=== PATIENT | female | born 1955 | race Caucasian/White ===

== ENCOUNTER 2018-02-14 10:51 | Inpatient (IN) | payer OTHER ==
[~2018-02-14] VITALS: Ht 162.6 cm; Wt 77.2 kg
--- NOTE | 2018-02-14 11:31 | ED GENERAL ADULT ---
History of Present Illness General Chief Complaint: Neuro Symptoms/ Deficit Stated Complaint: WEAKNESS SUDDEN ON SET OFBLINDNESS YESTERDAY Source: patient, family, old records Exam Limitations: no limitations Vital Signs & Intake/Output Vital Signs & Intake/Output Vital Signs Date Time Temp Pulse Resp B/P B/P Pulse O2 O2 Flow FiO2 Mean Ox Delivery Rate 02/14 1316 98.3 74 18 148/65 98 Room Air 02/14 1058 97.0 98 18 96/64 97 Room Air Room Air Allergies Coded Allergies: NO KNOWN ALLERGIES (10/16/12) Triage Note: TRIAGE: 62 Y/O FEMALE PRESENTS WITH MULTIPLE COMPLAINTS - CONTINUOUS FALLS, DIFFICULT AMBULATION, "SOMETHING ISN'T RIGHT". IMPAIRED VISION AT PRESENT PER PATIENT. "I DIDN'T WANT TO BOTHER MY DOCTOR YESTERDAY BECAUSE HE UST LOST HIS MOTHER." HISTORY OF FIBROMYALGIA AND "YOU NAME IT, I GOT IT." Triage Nurses Notes Reviewed? yes HPI: Patient states that she is over his head blurriness in her right eye however over the past few weeks the vision in her left eye has been getting worse as well and she is having double vision in that eye. Patient also states that on Thursday night she began having nausea vomiting and diarrhea however on Thursday she took a lemon ice and that alleviated those symptoms and she no longer has nausea vomiting or diarrhea. Patient states that yesterday morning she woke up and both her legs felt numb. Patient states that her left leg usually feels a little bit tingly however it is worsened and now her right leg is numb as well. Patient states that she keeps falling since yesterday because she can't feel her legs. Her son states that her shoes keep fallen off because she cannot feel them on her feet and she is very unsteady on her feet. Son states that he had to carry her to the car to get her here to the emergency department. Patient told triage that she is been blind since yesterday however she went to state that the vision in her eyes just gotten worse since yesterday. Past History Travel History Traveled to [place] past 21 day No Medical History Any Pertinent Medical History? see below for history Musculoskeletal: fibromyalgia History of MRSA: No History of VRE: No History of CDIFF: No Surgical History Surgical History: non-contributory Psychosocial History Who do you live with Spouse Services at Home None What is your primary language German Tobacco Use: Current Daily Use Daily Tobacco Use Amount/Type: => 5 Cigarettes daily ETOH Use: denies use Illicit Drug Use: marijuana Family History Hx Contributory? No Review of Systems Review of Systems Constitutional: Reports: no symptoms. EENTM: Reports: see HPI, blurred vision, double vision. Respiratory: Reports: no symptoms. Cardiovascular: Reports: no symptoms. GI: Reports: no symptoms. Genitourinary: Reports: no symptoms. Musculoskeletal: Reports: no symptoms. Skin: Reports: no symptoms. Neurological/Psychological: Reports: see HPI. Hematologic/Endocrine: Reports: no symptoms. Immunologic/Allergic: Reports: no symptoms. All Other Systems: Reviewed and Negative Physical Exam Physical Exam General Appearance: well developed/nourished, alert, awake, anxious, moderate distress Head: atraumatic, normal appearance Eyes: Bilateral: PERRL, EOMI, other (BLURRED VISION). Ears, Nose, Throat: normal pharynx, normal ENT inspection, hearing grossly normal Neck: normal inspection, supple, full range of motion Respiratory: normal breath sounds, chest non-tender, no respiratory distress, lungs clear Cardiovascular: regular rate/rhythm, normal peripheral pulses Gastrointestinal: normal bowel sounds, soft, non-tender, no organomegaly Back: normal inspection Extremities: normal inspection, normal capillary refill, normal range of motion, no edema, CAP REFILL <2 SEC Neurologic/Psych: awake, alert Reflexes: 2+: ankle (R), ankle (L). 3+: knee (R), knee (L). Skin: intact, normal color Comments: NEURO: A and O 3. Visual braden are intact however she states that she has blurry vision. Patient states that she is also having double vision. Extraocular muscles are intact, her neck is supple. Her reflexes are intact. There is no pronator drift. Patient is unable to elevate either leg off the stretcher however when checking Babinski's she pulled both feet back and both of them came off the table. Babinski's are downgoing bilaterally. Her capillary refill is less than 2 seconds patient states that she cannot feel my touch either lower extremity however she withdraws to pain. Core Measures ACS in differential dx? Yes CVA/TIA Diagnosis: Yes NIH Stroke Scale (24 Hours) NIH Stroke Scale (24 Hours) Response Value Level of Consciousness alert 0 LOC Questions answers both correctly 0 LOC Commands obeys both correctly 0 Best Gaze normal 0 Visual Braden no visual loss 0 Facial Paresis normal 0 Motor Arm - Left no drift 0 Motor Arm - Right no drift 0 Motor Leg - Left can't resist gravity 2 Motor Leg - Right can't resist gravity 2 Limb Ataxia present in two limbs 2 Sensory partial loss 1 Best Language no aphasia 0 Dysarthria normal articulation 0 Total 7 Date Last Known Well: 02/12/18 Time Last Known Well: 2199 Symptom start date: 02/12/18 Symptom start time: 2199 Reason tPA not ordered Medical Contraindication Swallow Evaluation Pass Swallow eval date 02/14/18 Swallow eval time 1300 Sepsis Present: No Sepsis Focused Exam Completed? No Progress Differential Diagnoses I considered the following diagnoses in my evaluation of the patient: [CVA, ELECTROLYTE ABNORMALITY, AMI, UTI, NEUROPATHY] Plan of Care: Orders Procedure Date/time Status Heart Healthy Diet 02/14 D Active Patient Data 02/14 1307 Active ED Holding Orders 02/14 1303 Active Admit to inpatient 02/14 1303 Active Vital Signs 02/14 1303 Active Code Status 02/14 1303 Active POTASSIUM 02/14 1245 Complete URINALYSIS 02/14 1131 Active TROPONIN LEVEL 02/14 1131 Complete COMPREHENSIVE METABOLIC PANEL 02/14 1131 Complete CBC WITHOUT DIFFERENTIAL 02/14 1131 Complete EKG 02/14 1131 Active Current Medications Sig/Juana Start time Last Medication Dose Stop Time Status Admin Potassium Chloride 40 MEQ ONCE ONE 02/14 1330 UNVr (K-Dur) 02/14 1331 Aspirin 325 MG ONCE ONE 02/14 1315 UNVr 02/14 (Aspirin) 02/14 1316 1309 Laboratory Tests 02/14/18 1255: 02/14/18 1210: Anion Gap 13, Estimated GFR > 60, BUN/Creatinine Ratio 31.7 H, Glucose 111 H, Calcium 9.4, Total Bilirubin 0.9, AST 15, ALT 51, Alkaline Phosphatase 68, Troponin I 0.02, Total Protein 6.9, Albumin 4.1, Globulin 2.8, Albumin/Globulin Ratio 1.5 02/14/18 1138: CBC w Diff NO MAN DIFF REQ, RBC 5.11, MCV 97.5, MCH 32.4 H, MCHC 33.3, RDW 14.8 H, MPV 8.7, Gran % 69.0, Lymphocytes % 21.9, Monocytes % 8.3, Eosinophils % 0.4 , Basophils % 0.4, Absolute Granulocytes 7.1 H, Absolute Lymphocytes 2.2, Absolute Monocytes 0.9 H, Absolute Eosinophils 0, Absolute Basophils 0 Diagnostic Imaging: Viewed by Me: Radiology Read, CT Scan. Discussed w/RAD: Radiology Read, CT Scan. Radiology Impression: PATIENT: ALLEGRA CAVANAUGH PRESENT AGE: 62 PATIENT ACCOUNT NO: [id number] : 57 LOCATION: [facility] ORDERING PHYSICIAN: Jose Ramon Lucas MD SERVICE DATE: 02/14/18 EXAM TYPE: CAT - CT HEAD WO IV CONTRAST EXAMINATION: CT HEAD WITHOUT CONTRAST CLINICAL INFORMATION: Bilateral lower extremity weakness and double vision. COMPARISON: None. TECHNIQUE: Contiguous axial imaging was performed from the skull base to vertex without intravenous administration of contrast. DLP: 607 mGy-cm. FINDINGS: There is confluent area of hypoattenuation within the white matter of the right paracentral lobule extending into the centrum semiovale ( series 2 image 45/64). There is no evidence of large territory acute infarction, hemorrhage, or extra-axial collection. The basal cisterns are intact. There is no midline shift or mass effect. The ventricles are normal in size and configuration without evidence of hydrocephalus. The extracranial structures are within normal limits. IMPRESSION: 1. Confluent area of hypoattenuation in the white matter of the right paracentral lobule extending into the centrum semiovale. This finding is indeterminant and may represent age-indeterminate subcortical infarct however vasogenic edema related to an underlying lesion could have a similar appearance. In the absence of prior studies to evaluate for stability of this finding a brain MRI with contrast is recommended for dedicated evaluation. 2. No intracranial hemorrhage, extra-axial collection, or evidence of large territory infarction. RECOMMENDATION: Brain MRI with contrast as above. DICTATED BY: Aranza Busby MD DATE/TIME DICTATED:02/14/181224 APNS:JAIDEN DATE/TIME TRANSCRIBED:02/14/181224 CONFIDENTIAL, DO NOT COPY WITHOUT APPROPRIATE AUTHORIZATION. <Electronically signed in Other Vendor System> SIGNED BY: Aranza Busby MD 02/14/18 1233 Initial ED EKG: LBBB, nonspecific ST T wave chg Prior EKG: unchanged Comments: Discussed with Dr. Ureña. He will see the patient consultation. Departure Departure Disposition: STILL A PATIENT Condition: Guarded Clinical Impression Primary Impression: CVA (cerebral vascular accident) Secondary Impressions: Hypokalemia Referrals: Rica REYNOLDS,Sawyer Guadalupe (PCP/Family) Departure Forms: Customer Survey General Discharge Information Admission Note Spoke With: Yusra REYNOLDS,[place] Documentation of Exam: Documentation of any treatments & extenuating circumstances including Concerns Regarding Discharge (functional status, medication knowledge or non-compliance, living conditions, etc.) that warrant an admission rather than observation: [ Telemetry admission, neurology checks, neurological consultation, aspirin, potassium replacement, MRI, physical therapy, case management] Critical Care Note Critical Care Note Critical Care Time: non-applicable
[2018-02-14 11:48] LABS: ABSOLUTE BASOPHIL COUNT 0 /CUMM (0.0-0.2); ABSOLUTE EOSINOPHIL COUNT 0 /CUMM (0.0-0.7); ABSOLUTE GRANULOCYTE CT 7.1 /CUMM (1.4-6.5); ABSOLUTE LYMPH COUNT 2.2 /CUMM (1.2-3.4); ABSOLUTE MONOCYTE COUNT 0.9 /CUMM (0.10-0.60); BASOPHIL % 0.4 % (0.0-2.0); EOSINOPHIL % 0.4 % (0-5); HEMATOCRIT 49.9 % (37-47); MEAN CORPUSCULAR HGB 32.4 PG (27.0-31.0); MEAN CORPUSCULAR HGB CONC 33.3 G/DL (33.0-37.0); MEAN CORPUSCULAR VOLUME 97.5 FL (81.0-99.0); MEAN PLATELET VOLUME 8.7 FL (7.4-10.4); PLATELET COUNT 231 /CUMM (130-400); RBC DISTRIBUTION WIDTH 14.8 % (11.5-14.5); RED BLOOD CELL CT 5.11 /CUMM (4.20-5.40); WHITE BLOOD CELL COUNT 10.3 /CUMM (4.8-10.8)
--- NOTE | 2018-02-14 12:33 | CT SCAN REPORT ---
EXAMINATION: CT HEAD WITHOUT CONTRAST CLINICAL INFORMATION: Bilateral lower extremity weakness and double vision. COMPARISON: None. TECHNIQUE: Contiguous axial imaging was performed from the skull base to vertex without intravenous administration of contrast. DLP: 607 mGy-cm. FINDINGS: There is confluent area of hypoattenuation within the white matter of the right paracentral lobule extending into the centrum semiovale (series 2 image 45/64). There is no evidence of large territory acute infarction, hemorrhage, or extra-axial collection. The basal cisterns are intact. There is no midline shift or mass effect. The ventricles are normal in size and configuration without evidence of hydrocephalus. The extracranial structures are within normal limits. IMPRESSION: 1. Confluent area of hypoattenuation in the white matter of the right paracentral lobule extending into the centrum semiovale. This finding is indeterminant and may represent age-indeterminate subcortical infarct however vasogenic edema related to an underlying lesion could have a similar appearance. In the absence of prior studies to evaluate for stability of this finding a brain MRI with contrast is recommended for dedicated evaluation. 2. No intracranial hemorrhage, extra-axial collection, or evidence of large territory infarction. RECOMMENDATION: Brain MRI with contrast as above.
--- NOTE | 2018-02-14 12:53 | RADIOLOGY REPORT ---
EXAMINATION: XR PORTABLE CHEST CLINICAL INFORMATION: Cough. COMPARISON: Chest radiograph 04/01/2013. TECHNIQUE: Portable frontal view of the chest was obtained. FINDINGS: No dense consolidation in the chest. No edema, pleural effusion, or pneumothorax. Cardiomediastinal silhouette is normal. Mild atheromatous calcifications in the aorta. IMPRESSION: No dense consolidation in the chest.
--- NOTE | 2018-02-14 14:26 | History & Physical ---
See Addendum General Information and HPI MD Statement: I have seen and personally examined ALLEGRA CAVANAUGH and documented this H&P. The patient is a 62 year old F who presented with a patient stated chief complaint of [loss of vision in right eye, weakness in left leg]. Source of Information: patient Exam Limitations: no limitations History of Present Illness: Patient is 62 years old female with PMH of bipolar disorder, depression, fibromyalgia, heart burn, silent heart attack twice (discorvered through EKG), came with chief complain of worsening vision and weakness in left leg. Patient states that since thursday she was not feeling well due to a stomach bug and was having nausea and voimting, yesterday she decided to visit her PCP for that and she noticed difficulty in getting dressed. Her left leg was giving away and she was unable to stand on her feet. Patient also reports that her vision started to blur yesterday. She can only see sh[place]owns through the right eye, however her left sided vision is blur and distored. She has a history of one floater in right eye but the current blurriness is completely new according to her. Patient also reports of headache in right side of the head and particulalrly states that her temporal region is tender since yesterday. (no reddness or swelling appreciated). It is 8/10 in intensity and pressure like in nature, sharp on touch only. Patient denies chest pain, difficulty breathing, abdominal disocmfort. She has not eaten anything and feels hungry. Patient lives at home and does not use walker or cane. Allergies/Medications Allergies: Coded Allergies: NO KNOWN ALLERGIES (10/16/12) Past History Travel History Traveled to [place] past 21 day No Medical History Cardiovascular: NSTEMI Gastrointestinal: GERD Musculoskeletal: fibromyalgia Psychiatric: BIPOLAR, DEPRESSION History of MRSA: No History of VRE: No History of CDIFF: No Surgical History Surgical History: non-contributory Past Family/Social History Psychosocial History Services at Home: None ETOH Use: denies use Illicit Drug Use: marijuana Functional Ability ADLs Independent: dressing, eating, toileting, bathing. Ambulation: independent Review of Systems Review of Systems Constitutional: Reports: see HPI. Exam & Diagnostic Data Last 24 Hrs of Vital Signs/I&O Vital Signs Date Time Temp Pulse Resp B/P B/P Pulse O2 O2 Flow FiO2 Mean Ox Delivery Rate 02/14 1455 98.3 85 18 132/88 98 Room Air 02/14 1316 98.3 74 18 148/65 98 Room Air 02/14 1058 97.0 98 18 96/64 97 Room Air Room Air Intake & Output 02/14 1600 02/14 0800 02/14 0000 Intake Total Output Total Balance Patient 77.111 kg Weight Weight Reported by Patient Measurement Method Physical Exam General Appearance Alert, Oriented X3, Mild Distress Skin No Rashes Skin Temp/Moisture Exam: Warm/Dry HEENT Atraumatic, PERRLA, Mucous Membr. moist/pink Neck Supple Cardiovascular Regular Rate, Normal S1, Normal S2 Lungs Clear to Auscultation, Normal Air Movement Abdomen Normal Bowel Sounds, Soft, No Tenderness Neurological Normal Speech, Normal Tone, Sensation Intact, Cranial Nerves 3-12 NL, WEAKNESS OBSERVED ON LEFT LOWER EXTREMETIES, PATIENT UNABLE TO TELL CORRECT NUMBER OF FINGERS WITH RIGHT EYE, TENDERNESS APPRECIATED IN TEMPORAL REGION Extremities No Edema Last 24 Hrs of Labs/Rashawn: Laboratory Tests 02/14/18 1401: Troponin I Cancelled 02/14/18 1255: Creatine Kinase 25 L, Ref Lab Test Result Pending 02/14/18 1210: Anion Gap 13, Estimated GFR > 60, BUN/Creatinine Ratio 31.7 H, Glucose 111 H, Calcium 9.4, Total Bilirubin 0.9, AST 15, ALT 51, Alkaline Phosphatase 68, Troponin I 0.02, Total Protein 6.9, Albumin 4.1, Globulin 2.8, Albumin/Globulin Ratio 1.5 02/14/18 1138: CBC w Diff NO MAN DIFF REQ, RBC 5.11, MCV 97.5, MCH 32.4 H, MCHC 33.3, RDW 14.8 H, MPV 8.7, Gran % 69.0, Lymphocytes % 21.9, Monocytes % 8.3, Eosinophils % 0.4 , Basophils % 0.4, Absolute Granulocytes 7.1 H, Absolute Lymphocytes 2.2, Absolute Monocytes 0.9 H, Absolute Eosinophils 0, Absolute Basophils 0 Assessment/Plan Assessment: Patient is 62 years old female with PMH of bipolar disorder, depression, fibromyalgia, heart burn, silent heart attack twice (discorvered through EKG), came with chief complain of worsening vision and weakness in left leg. Patient states that since thursday she was not feeling well due to a stomach bug and was having nausea and voimting, yesterday she decided to visit her PCP for that and she noticed difficulty in getting dressed. Her left leg was giving away and she was unable to stand on her feet. Patient also reports that her vision started to blur yesterday. She can only see sh[place]s through the right eye, however her left sided vision is blur and distored. Vitals on admission as above. Imagin. Confluent area of hypoattenuation in the white matter of the right paracentral lobule extending into the centrum semiovale. This finding is indeterminant and may represent age-indeterminate subcortical infarct however vasogenic edema related to an underlying lesion could have a similar appearance. In the absence of prior studies to evaluate for stability of this finding a brain MRI with contrast is recommended for dedicated evaluation. 2. No intracranial hemorrhage, extra-axial collection, or evidence of large territory infarction. RECOMMENDATION: Brain MRI with contrast as above. Assessment and plan: Patient symptoms of right sided temporal tenderness and loss of vision are consistent with temporal arteritis. Will check ESR and CRP. Can consider starting 500 mg steroids daily for 3 days then taper and go for temporal artery biopsy after that. Patients weakness inleft leg could be secondary to an ischemic stroke,no clear what the vasogenic edema interpretation on CT scan signifies. Consult placed with Dr. walker. WIll follow up. [facility] ont[facility]ue patient on aspirin, high dose statin, frequent neuro checks. Obtain Lipid panel. DVT ppx ALPS Code status: DNR/DNI As Ranked By This Provider Problem List: 1. CVA (cerebral vascular accident) Core Measures/Misc (07/26) Acute Coronary Syndrome ACS Diagnosis: No Congestive Heart Failure Congestive Heart Failure Diagnosis No Cerebrovascular Accident CVA/TIA Diagnosis: Yes Date Last Known Well: 02/12/18 Time Last Known Well: 2199 Symptom Start Date: 02/12/18 Symptom Start Time: 2200 Swallow Evaluation Pass VTE (View Protocol) VTE Risk Factors Age>40 No Mechanical VTE Prophylaxis d/t N/A MechProphylax Ordered No VTE Pharm Prophylaxis d/t NA PharmProphylax ordered Sepsis (View protocol) Sepsis Present: No
[2018-02-14 15:54] VITALS: BP 118/78
--- NOTE | 2018-02-14 16:00 | Cons- Neurology ---
General Information and HPI Consulting Request Date of Consult: 02/14/18 Requested By: Yusra REYNOLDS,[place] History of Present Illness: 62-year-old female with history of bipolar disorder, "fibromyalgia", coronary artery disease and gastroesophageal reflux describes several days of GI disturbance earlier in the week. Today, she became aware of a weak sensation chiefly involving the left lower extremity. A family member had to carry her to the car. She also endorses headache and diminished vision bilaterally. There is been no trauma or fever. There is no known history of stroke syndrome. CT scan of the brain on admission shows an area of hypoattenuation in the right paracentral lobule of uncertain etiology. Allergies/Medications Allergies: Coded Allergies: NO KNOWN ALLERGIES (10/16/12) Review of Systems Review of Systems: Notable for recent nausea, diarrhea, headache, visual obscuration and weakness of the legs, left greater than right. There is been no recent fever, rash, diplopia, dysarthria, dysphagia, chest pain, shortness of breath, joint inflammation or abnormal bleeding Past History Travel History Traveled to [place] past 21 day No Medical History Blood Transfusion Hx: No Cardiovascular: NSTEMI Gastrointestinal: GERD Musculoskeletal: fibromyalgia Psychiatric: BIPOLAR, DEPRESSION Surgical History Surgical History: cholecystectomy, BACK SURGERY Psychosocial History Where Do You Live? Home Services at Home: None Smoking Status: Current Everyday Smoker ETOH Use: denies use Illicit Drug Use: marijuana Functional Ability ADLs Independent: dressing, eating, toileting, bathing. Ambulation: independent Exam & Diagnostic Data Vital Signs and I&O Vital Signs Date Time Temp Pulse Resp B/P B/P Pulse O2 O2 Flow FiO2 Mean Ox Delivery Rate 02/14 1517 Room Air 02/14 1455 98.3 85 18 132/88 98 Room Air 02/14 1316 98.3 74 18 148/65 98 Room Air 02/14 1058 97.0 98 18 96/64 97 Room Air Room Air Intake & Output 02/14 1600 02/14 0800 02/14 0000 Intake Total Output Total Balance Patient 165 lb Weight Weight Bed scale Measurement Method Middle-aged, somewhat histrionic female who was in no acute distress. The head was normocephalic and atraumatic. Higher cortical function was grossly intact. Speech was fluent. Pupils were equal. Extraocular movements were full. Face was symmetric. Hearing was grossly normal. Tongue was midline. There was no drift of the upper extremities or obvious focal weakness in the arms. Right lower extremity power seemed to be intact. There was questionable weakness of the proximal left lower extremity. Distal power seemed to be intact. Effort was inconsistent. Deep tendon reflexes were 2+ at the knees and 2 minus at the ankles. Plantar responses were flexor. Sensory examination showed questionably diminished pinprick in a nondermatomal distribution affecting the left lower extremity. She required contact guard of 2 to ambulate within the room. Assessment/Plan Assessment: The patient presents with acute leg weakness, gait disturbance, headache and visual complaints. CT scan shows a questionable lesion in the right hemisphere. Although leg weakness could accompany an abnormality in this location, it would not explain her more diffuse complaints which may represent superimposed anxiety and/or embellishment. Recommendations: Would obtain MRI of the brain, with and without contrast. DVT precautions should be put into place. Would ask physiotherapy to assist. Neurology will follow. Please call with any questions. Consult Acknowledgment - Thank you for your consult request.
--- NOTE | 2018-02-14 16:34 | ULTRASOUND REPORT ---
EXAMINATION: DUPLEX BILATERAL CAROTID ULTRASOUND CLINICAL INFORMATION: Possible stroke. COMPARISON: No similar prior examinations available for comparison. TECHNIQUE: Real-time ultrasound and Doppler techniques (integrating B-mode 2D vascular images, Doppler spectral analysis and color flow Doppler imaging) were utilized to interrogate the extracranial carotid and vertebral arteries bilaterally. The degree of stenosis determined by criteria similar to NASCET. Examination limited secondary to patient noncompliance during examination. FINDINGS: Right side: 1. No appreciable plaque is seen in the ECA/ICA region. 2. The common carotid artery velocity is 104 cm/s. 3. The internal carotid artery velocities are 53 cm/s systolic and 23 cm/s diastolic. 4. The external carotid artery velocity is 66 cm/s. Left side: 1. No appreciable plaque is seen in the ECA/ICA region. 2. The common carotid artery velocity is 82 cm/s. 3. The internal carotid artery velocities are 57 cm/s systolic and 20 cm/s diastolic. 4. The external carotid artery velocity is 87 cm/s. ADDITIONAL FINDINGS: 1. The vertebral arteries show antegrade flow. IMPRESSION: 1. RIGHT: No significant stenosis of the proximal right internal carotid artery by velocity criteria. 2. LEFT: No significant stenosis of the proximal left internal carotid artery by velocity criteria. 3. No evidence for hemodynamically significant stenosis in the external carotid arteries.
--- NOTE | 2018-02-14 16:37 | Admission Certification ---
Admission Certification Certification Statement - As attending physician, I certify that at the time of - admission, based on clinical presentation, severity of - symptoms, need for further diagnostic testing and - therapeutic interventions, and risk of adverse outcomes - without in-hospital treatment, in my clinical assessment, - this patient requires an acute hospital stay for a minimum - of two nights or longer. I have also considered psychsocial - factors such as support system, advanced age, financial - issues, cognitive issues, and failed out-patient treatments, - past re-admission history, safety of patient, and lack of - compliance as applicable. Specific rationale supporting this admission is: visual blurring and leg weakness, suspected stoke
[2018-02-14 22:28] VITALS: BP 132/76
[2018-02-15 06:55] VITALS: BP 124/66
[2018-02-15 07:06] VITALS: BP 124/66
[2018-02-15 08:00] LABS: ABSOLUTE BASOPHIL COUNT 0 /CUMM (0.0-0.2); ABSOLUTE EOSINOPHIL COUNT 0 /CUMM (0.0-0.7); ABSOLUTE GRANULOCYTE CT 2.5 /CUMM (1.4-6.5); ABSOLUTE LYMPH COUNT 3.7 /CUMM (1.2-3.4); ABSOLUTE MONOCYTE COUNT 0.6 /CUMM (0.10-0.60); BASOPHIL % 0.4 % (0.0-2.0); EOSINOPHIL % 0.7 % (0-5); GRANULOCYTE % 36.6 % (42.2-75.2); MEAN CORPUSCULAR HGB 32.9 PG (27.0-31.0); MEAN CORPUSCULAR HGB CONC 33.8 G/DL (33.0-37.0); MEAN CORPUSCULAR VOLUME 97.2 FL (81.0-99.0); MEAN PLATELET VOLUME 8.9 FL (7.4-10.4); PLATELET COUNT 190 /CUMM (130-400); RBC DISTRIBUTION WIDTH 14.8 % (11.5-14.5); RED BLOOD CELL CT 4.23 /CUMM (4.20-5.40)
[2018-02-15 08:14] LABS: HEMATOCRIT 41.1 % (37-47)
--- NOTE | 2018-02-15 08:14 | PN- Housestaff ---
Bipin Quintanilla MD,[facility] 02/15/18 0814: Subjective Follow-up For: Suspected stroke Hypokalemia History of bipolar disorder Complaints: weakness in the left leg Subjective: Patient is still complaining of weakness in the proximal left lower extremity. Unspecified visual disturbances, No acute episode of chest pain or shortness of breath overnight. Intact rectal tone. Review of Systems Constitutional: Denies: chills, fever. EENTM: Denies: visual changes. Cardiovascular: Denies: chest pain, palpitations. Respiratory: Denies: cough, short of breath. Gastrointestinal: Denies: abdominal pain, nausea, vomiting. Genitourinary: Denies: dysuria. Musculoskeletal: Denies: back pain. Neurological/Psychological: Reports: weakness. Objective Last 24 Hrs of Vital Signs/I&O Vital Signs Date Time Temp Pulse Resp B/P B/P Pulse O2 O2 Flow FiO2 Mean Ox Delivery Rate 02/15 1455 98.0 76 18 102/60 95 Room Air 02/15 0706 97.6 78 18 124/66 97 Room Air 02/15 0655 97.6 78 18 124/66 97 Room Air 02/14 2228 97.1 77 18 132/76 77 Room Air Intake & Output 02/15 1600 02/15 0800 02/15 0000 Intake Total 480 200 864 Output Total 400 500 Balance 480 -200 364 Intake, IV 0 420 Intake, Oral 480 200 444 Number 0 Bowel Movements Output, Urine 400 500 Patient 169 lb Weight Physical Exam General Appearance: Alert, Oriented X3, Cooperative, No Acute Distress Skin: No Rashes, tattoes noticed HEENT: PERRLA Neck: No JVD Cardiovascular: Regular Rate, Normal S1, Normal S2 Lungs: Clear to Auscultation, Normal Air Movement Abdomen: Normal Bowel Sounds, Soft, No Tenderness, No Hepatospenomegaly Neurological: Normal Speech, weakness of the proximal left lower extremity 4/5 Distal power was intact 5/5 Hyper-reflexia of left lower extremity Extremities: No Edema Vascular: Normal Pulses Current Medications: Current Medications Sig/Juana Start time Last Medication Dose Route Stop Time Status Admin Acetaminophen 650 MG Q8P PRN 02/14 1800 AC PO Albuterol Sulfate 2 PUF Q4 02/14 2200 AC 02/15 INH 1340 Alprazolam 1 MG ONCE ONE 02/15 915 DC 02/15 PO 04/09 0916 1059 Aspirin 81 MG DAILY 02/15 1000 AC 02/15 PO 1051 Atorvastatin Calcium 80 MG 1700 02/14 1700 AC 02/15 PO 1646 Heparin Sodium 5,000 UNIT Q8 02/15 2200 AC (Porcine) SC Hydrocodone Bitart/ 1 TAB Q6P PRN 02/14 2245 AC 02/15 Acetaminophen PO 0503 Ketorolac 15 MG Q6P PRN 02/14 1800 AC Tromethamine IV Lamotrigine 100 MG DAILY 02/15 1000 AC 02/15 PO 0858 Melatonin 5 MG AT BEDTIME 02/15 2200 CAN PO Nicotine 14 MG DAILY 02/14 1842 AC 02/15 TOP 1340 Omeprazole 40 MG DAILY AC 02/14 1845 AC 02/15 PO 0503 Oxycodone/ 1 TAB Q8P PRN 02/14 1800 AC 02/15 Acetaminophen PO 1653 Potassium Chloride 20 MEQ TID 02/15 1000 AC 02/15 PO 02/15 2355 1646 Potassium Chloride 40 MEQ ONCE ONE 02/14 1800 CAN PO 02/14 1801 Quetiapine Fumarate 200 MG DAILY 02/15 1000 AC 02/15 PO 0858 Trazodone HCl 100 MG AT BEDTIME 02/14 2200 AC 02/14 PO 2100 Last 24 Hrs of Lab/Rashawn Results Last 24 Hrs of Labs/Mics: Laboratory Tests 02/15/18 0655: Anion Gap 12, Estimated GFR > 60, BUN/Creatinine Ratio 18.3, Magnesium 1.8, Triglycerides 90, Cholesterol 152, LDL Cholesterol, Calc 85, HDL Cholesterol 49, Cholesterol/HDL Ratio 3, CBC w Diff NO MAN DIFF REQ, RBC 4.23, MCV 97.2, MCH 32.9 H, MCHC 33.8, RDW 14.8 H, MPV 8.9, Gran % 36.6 L, Lymphocytes % 53.1 H, Monocytes % 9.2, Eosinophils % 0.7, Basophils % 0.4, Absolute Granulocytes 2.5, Absolute Lymphocytes 3.7 H, Absolute Monocytes 0.6, Absolute Eosinophils 0, Absolute Basophils 0 02/15/18 0000: Troponin I < 0.01 Lines/Diet/Fluids Restraints: none Assessment/Plan Assessment: 62 years old female with PMH of bipolar disorder, depression, fibromyalgia, heart burn, silent heart attack twice (discorvered through EKG) as per the patient, came with chief complain of worsening vision and weakness in left leg. CT scan of the brain showed, Confluent area of hypoattenuation in the white matter of the right paracentral lobule extending into the centrum semiovale. This finding is indeterminant and may represent age-indeterminate subcortical infarct however vasogenic edema related to an underlying lesion could have a similar appearance. Brain MRI was ordered that showed, Expansile T2 hyperintensity and associated restricted diffusion in the bilateral parietal and occipital lobes compatible with posterior reversible encephalopathy syndrome (PRES). No intracranial hemorrhage, large territory infarct, or mass. Patient was admitted on telemetry floor for the management of following problems Reversible posterior leukoencephalopathy syndrome (RPLS) Initially when patient presented, she was treated for possible stroke. Her clinical exam and imaging were not consistent therefore it was decided to get an MRI. Patient does have visual symptoms and ? Confusion. She is not experiencing any hypertensive crisis, preeclampsia, or undergoing cytotoxic immunosuppressive therapy. EEG might be beneficial to rule out any seizures. Neurology on board and record and informed about this finding. We still have to explain her lower extremity weakness. Patient was able to passed bedside swallow. Patient was also empirically started on aspirin and statin. Currently on fall precautions. Ultrasound carotid showed, No evidence for hemodynamically significant stenosis in the external carotid arteries. PT/ OT ordered Hypokalemia Patient admitted with no levels of potassium. Mild improvement with supplementation. We will provide her with aggressive replacement. Normal magnesium levels. Chronic medical conditions Patient has past medical history significant for bipolar disorder and and fibromyalgia. We'll continue regular medications. Patient is DNR/DNI Patient is on heart healthy diet Patient is on heparin for DVT prophylaxis Problem List: 1. Hypokalemia Pain Ratin Pain Location: lower legs Pain Goal: Pain 4 or less Pain Plan: Continue current pain medications Tomorrow's Labs & Rationales: BEP for hypokalemia CBC for hemoglobin DVT/Prophylaxis: pharmacological Vince Coello 02/15/18 1211: Attending MD Review Statement Attending Statement Attending MD Statement: examined this patient, discuss w/resident/PA/LEAD SOFTWARE QA ENGINEER, agreed w/resident/PA/LEAD SOFTWARE QA ENGINEER, discussed with family, reviewed EMR data (avail), discussed with nursing, discussed with case mgmt, reviewed images, amended to note Attending Assessment/Plan: Patient is a 62-year-old female with history of bipolar disorder and fibromyalgia since with the blurred vision and left-sided weakness more pronounced in the left leg. Her CT scan has shown hypoattenuated lesion in the white matter of the right paracentral lobe extending into centrum semiovale. Neurology consulted and recommend MRI brain. Patient admitted for Suspected stroke- other differential include metastatic tumor or primary malignancy of brain and History of bipolar disorder. Patient on aspirin and Lipitor, f/u MRI, PT consult. Fall precautions. DVT prophylaxis.
[2018-02-15 08:29] LABS: WHITE BLOOD CELL COUNT 6.9 /CUMM (4.8-10.8)
--- NOTE | 2018-02-15 12:37 | PN- Neurology ---
Subjective Subjective: No new complaints. Still admits to some visual disturbance and leg weakness. She had no difficulty swallowing today. Objective Vital Signs and I&Os Vital Signs Date Time Temp Pulse Resp B/P B/P Pulse O2 O2 Flow FiO2 Mean Ox Delivery Rate 02/15 0706 97.6 78 18 124/66 97 Room Air 02/15 0655 97.6 78 18 124/66 97 Room Air 02/14 2228 97.1 77 18 132/76 77 Room Air 02/14 1554 98.2 90 18 118/78 96 Room Air 02/14 1517 Room Air 02/14 1455 98.3 85 18 132/88 98 Room Air 02/14 1316 98.3 74 18 148/65 98 Room Air Intake & Output 02/15 1600 02/15 0800 02/15 0000 02/14 1600 02/14 0800 02/14 0000 Intake Total 200 864 10 Output Total 400 500 Balance -200 364 10 Intake, IV 0 420 10 Intake, Oral 200 444 Number 0 Bowel Movements Output, Urine 400 500 Patient 169 lb 165 lb Weight Weight Bed scale Measurement Method Awake and alert. In no acute distress. Speech fluent. Pupils equal. Extraocular movements full. Face was symmetric. There was no dysarthria. The motor examination showed questionable drift of the left upper extremity. There was mild weakness of the proximal left lower extremity. Distal power was intact. Plantar responses were flexor. Current Medications: Current Medications Sig/Juana Start time Last Medication Dose Route Stop Time Status Admin Acetaminophen 650 MG Q8P PRN 02/14 1800 AC PO Albuterol Sulfate 2 PUF Q4 02/14 2200 AC 02/15 INH 0859 Alprazolam 1 MG ONCE ONE 02/15 0915 DC 02/15 PO 02/15 0916 1059 Aspirin 81 MG DAILY 02/15 1000 AC 02/15 PO 1051 Aspirin 325 MG ONCE ONE 02/14 1315 DC 02/14 PO 02/14 1316 1309 Aspirin 0 .STK-MED ONE 02/14 1310 DC PO Atorvastatin Calcium 80 MG 1700 02/14 1700 AC 02/14 PO 1804 Hydrocodone Bitart/ 1 TAB Q6P PRN 02/14 2245 AC 02/15 Acetaminophen PO 0503 Ketorolac 15 MG Q6P PRN 02/14 1800 AC Tromethamine IV Lamotrigine 100 MG DAILY 02/15 1000 AC 02/15 PO 0858 Melatonin 5 MG AT BEDTIME 02/15 2200 AC PO Nicotine 14 MG DAILY 02/14 1842 AC 02/14 TOP 2100 Omeprazole 40 MG DAILY AC 02/14 1845 AC 02/15 PO 0503 Oxycodone/ 1 TAB Q8P PRN 02/14 1800 AC 02/15 Acetaminophen PO 0909 Potassium Chloride 20 MEQ TID 02/15 1000 AC 02/15 PO 02/15 2355 0916 Potassium Chloride 40 MEQ ONCE ONE 02/14 1800 CAN PO 02/14 1801 Potassium Chloride 10 MEQ Q1H 02/14 1515 DC 02/14 IV 02/14 1616 1942 Potassium Chloride 40 MEQ ONCE ONE 02/14 1330 DC 02/14 PO 02/14 1331 1325 Potassium Chloride 0 .STK-MED ONE 02/14 1327 DC PO Potassium Chloride 0 .STK-MED ONE 02/14 1324 DC PO Quetiapine Fumarate 200 MG DAILY 02/15 1000 AC 02/15 PO 0858 Trazodone HCl 100 MG AT BEDTIME 02/14 2200 AC 02/14 PO 2100 Assessment/Plan Assessment: Reported, acute onset of left lower extremity weakness. Initial CT scan notable for a right subcortical parasagittal lesion which could account for left leg weakness. There did not appear to be any significant mass effect. Location is atypical for stroke however an anterior cerebral infarct could theoretically present in this fashion. Plan: Await MRI report. Physical and occupational therapy should be put into place. Aspirin and atorvastatin has been started. Dr. Barcenas will follow as of tomorrow.
--- NOTE | 2018-02-15 12:57 | MRI REPORT ---
EXAMINATION: MR BRAIN WITHOUT CONTRAST CLINICAL INFORMATION: Evaluate for stroke/vasogenic edema. COMPARISON: Head CT 02/14/2018. TECHNIQUE: MRI of the brain without contrast was obtained using routine sequences. The study is moderately motion degraded. The study was prematurely terminated at the patient's request. FINDINGS: There are patchy and confluent areas of expansile T2 hyperintensity and associated restricted diffusion involving the right superior parietal lobule, bilateral deep parietal white matter, and bilateral occipital lobes in a typical distribution of posterior reversible encephalopathy syndrome. There is no associated hemorrhage. There is no large territory infarction. There is no intracranial mass or extra-axial collection. There are mild scattered foci of T2 hyperintensity in the bilateral cerebral white matter which may reflect small vessel ischemic changes but is nonspecific. There is scattered mucosal thickening throughout the paranasal sinuses. There is a small amount of fluid in the mastoids. IMPRESSION: - Expansile T2 hyperintensity and associated restricted diffusion in the bilateral parietal and occipital lobes compatible with posterior reversible encephalopathy syndrome (PRES). - No intracranial hemorrhage, large territory infarct, or mass.
[2018-02-15 14:55] VITALS: BP 102/60
[2018-02-15 22:38] VITALS: BP 100/64
[2018-02-16 06:56] VITALS: BP 109/76
[2018-02-16 08:06] LABS: ABSOLUTE BASOPHIL COUNT 0 /CUMM (0.0-0.2); ABSOLUTE EOSINOPHIL COUNT 0 /CUMM (0.0-0.7); ABSOLUTE GRANULOCYTE CT 2.8 /CUMM (1.4-6.5); ABSOLUTE LYMPH COUNT 2.4 /CUMM (1.2-3.4); ABSOLUTE MONOCYTE COUNT 0.4 /CUMM (0.10-0.60); BASOPHIL % 0.5 % (0.0-2.0); EOSINOPHIL % 0.6 % (0-5); GRANULOCYTE % 48.8 % (42.2-75.2); HEMATOCRIT 38.6 % (37-47); MEAN CORPUSCULAR HGB 33.2 PG (27.0-31.0); MEAN CORPUSCULAR HGB CONC 33.7 G/DL (33.0-37.0); MEAN CORPUSCULAR VOLUME 98.7 FL (81.0-99.0); MEAN PLATELET VOLUME 8.9 FL (7.4-10.4); PLATELET COUNT 161 /CUMM (130-400); RBC DISTRIBUTION WIDTH 14.9 % (11.5-14.5); RED BLOOD CELL CT 3.92 /CUMM (4.20-5.40); WHITE BLOOD CELL COUNT 5.7 /CUMM (4.8-10.8)
--- NOTE | 2018-02-16 08:54 | PN- Housestaff ---
Bipin Quintanilla MD,[facility] 02/16/18 0854: Subjective Follow-up For: Reversible posterior leukoencephalopathy syndrome (RPLS) Left lower extremity weakness/ Ischemic Stroke Hypokalemia- resolved History of bipolar disorder Complaints: weakness in the left leg Tele-Events Since Last Visit: Patient was in normal sinus rhythm with a heart rate of 65-75, with occasional PVCs noticed Subjective: Patient was comfortably lying in the bed. She feels that her weakness in the left lower extremities the same without any improvement. She still has some unspecified visual disturbances. No acute chest pain or shortness of breath Review of Systems Constitutional: Denies: chills, fever. EENTM: Denies: visual changes. Cardiovascular: Denies: chest pain, palpitations. Respiratory: Denies: cough, short of breath. Genitourinary: Denies: discharge. Musculoskeletal: Denies: back pain. Objective Last 24 Hrs of Vital Signs/I&O Vital Signs Date Time Temp Pulse Resp B/P B/P Pulse O2 O2 Flow FiO2 Mean Ox Delivery Rate 02/16 08 Room Air 02/16 0656 97.6 78 21 109/76 94 02/15 2238 98.1 72 22 100/64 93 02/15 1455 98.0 76 18 102/60 95 Room Air Intake & Output 02/16 1600 02/16 0800 02/16 0000 Intake Total 175 200 Output Total 200 Balance -25 200 Intake, Oral 175 200 Output, Urine 200 Patient 167 lb Weight Physical Exam General Appearance: Alert, Oriented X3, Cooperative, No Acute Distress Skin: No Rashes, tattoes noticed HEENT: Atraumatic Neck: No JVD Cardiovascular: Regular Rate, Normal S1, Normal S2 Lungs: Clear to Auscultation, Normal Air Movement Abdomen: Normal Bowel Sounds, Soft, No Tenderness Neurological: Normal Speech, Normal Speech, weakness of the proximal left lower extremity 4/5 Distal power was intact 5/5 Hyper-reflexia of left lower extremity Extremities: No Edema Vascular: Normal Pulses Current Medications: Current Medications Sig/Juana Start time Last Medication Dose Route Stop Time Status Admin Acetaminophen 650 MG Q8P PRN 02/14 1800 AC PO Albuterol Sulfate 2 PUF Q4 02/14 2200 AC 02/16 INH 0933 Aspirin 81 MG DAILY 02/15 1000 AC 02/16 PO 0933 Atorvastatin Calcium 80 MG 1700 02/14 1700 AC 02/15 PO 1646 Heparin Sodium 5,000 UNIT Q8 02/15 2200 AC 02/16 (Porcine) SC 0627 Hydrocodone Bitart/ 1 TAB Q6P PRN 02/14 2245 AC 02/16 Acetaminophen PO 0646 Ketorolac 15 MG Q6P PRN 02/14 1800 DC Tromethamine IV Lamotrigine 100 MG DAILY 02/15 1000 AC 02/16 PO 0933 Melatonin 5 MG AT BEDTIME 02/15 2200 CAN PO Nicotine 14 MG DAILY 02/14 184 AC 02/16 TOP 0933 Omeprazole 40 MG DAILY AC 02/14 1845 AC 02/16 PO 0627 Oxycodone/ 1 TAB Q8P PRN 02/14 1800 DC 02/15 Acetaminophen PO 1653 Patient Medication 1 ED ONE ONE 02/16 0830 DC Teaching ED 02/16 0831 Potassium Chloride 40 MEQ ONCE ONE 02/15 2245 DC 02/15 PO 02/15 224 2246 Potassium Chloride 20 MEQ TID 02/15 1000 DC 02/15 PO 02/15 2355 2112 Quetiapine Fumarate 200 MG DAILY 02/15 1000 AC 02/16 PO 0933 Trazodone HCl 100 MG AT BEDTIME 02/14 220 AC 02/15 PO 2112 Last 24 Hrs of Lab/Rashawn Results Last 24 Hrs of Labs/Mics: Laboratory Tests 02/16/18 0618: Anion Gap 8, Estimated GFR > 60, BUN/Creatinine Ratio 15.7, CBC w Diff NO MAN DIFF REQ, RBC 3.92 L, MCV 98.7, MCH 33.2 H, MCHC 33.7, RDW 14.9 H, MPV 8.9, Gran % 48.8, Lymphocytes % 42.4, Monocytes % 7.7, Eosinophils % 0.6, Basophils % 0.5, Absolute Granulocytes 2.8, Absolute Lymphocytes 2.4, Absolute Monocytes 0.4 , Absolute Eosinophils 0, Absolute Basophils 0 02/15/181815: Anion Gap 11, Estimated GFR > 60, BUN/Creatinine Ratio 12.9 Lines/Diet/Fluids Restraints: none Assessment/Plan Assessment: 62 years old female with PMH of bipolar disorder, depression, fibromyalgia, heart burn, silent heart attack twice (discorvered through EKG) as per the patient, came with chief complain of worsening vision and weakness in left leg. CT scan of the brain showed, Confluent area of hypoattenuation in the white matter of the right paracentral lobule extending into the centrum semiovale. This finding is indeterminant and may represent age-indeterminate subcortical infarct however vasogenic edema related to an underlying lesion could have a similar appearance. Brain MRI was ordered that showed, Expansile T2 hyperintensity and associated restricted diffusion in the bilateral parietal and occipital lobes compatible with posterior reversible encephalopathy syndrome (PRES). No intracranial hemorrhage, large territory infarct, or mass. Patient was admitted on telemetry floor for the management of following problems Reversible posterior leukoencephalopathy syndrome (RPLS) Initially when patient presented, she was treated for possible stroke. Her clinical exam and imaging were not consistent therefore it was decided to get an MRI. Patient does have visual symptoms and ? Confusion. She is not experiencing any hypertensive crisis, or undergoing cytotoxic immunosuppressive therapy. EEG might be beneficial to rule out any seizures. Neurology on board and record and informed about this finding. Left lower extremity weakness/ Ischemic Stroke Patient's proximal lower extremity weakness with brisk reflexes did not improve during the hospitalization. Patient was able to pass bedside swallow. Patient was also empirically started on aspirin and statin to treat this weakness as possible ischemic stroke. Patient was placed on fall precautions. Ultrasound carotid showed, No evidence for hemodynamically significant stenosis in the external carotid arteries. PT/OT ordered. Consider EEG. Hypokalemia Patient admitted with very low levels of potassium. Mild improvement progressively with PO supplementation. Normal magnesium levels. We also discussed about the possibility of hypokalemic periodic paralysis but her wekaness in the left leg did not improve with normaliztion of potassium levels. Avoid QTC prolonging medications. Chronic medical conditions Patient has past medical history significant for bipolar disorder and and fibromyalgia. We'll continue regular medications. Patient is DNR/DNI Patient is on heart healthy diet Patient is on heparin for DVT prophylaxis Problem List: 1. Hypokalemia 2. Encephalopathy Pain Ratin Pain Location: NA Pain Goal: Pain 4 or less Pain Plan: Continue current medications Tomorrow's Labs & Rationales: BEP to follow hypokalemia Vince Coello 02/16/18 1126: Attending Review Statement Attending Statement Attending MD Statement: examined this patient, discuss w/resident/PA/ARTIST CONSULTANT, agreed w/resident/PA/ARTIST CONSULTANT, discussed with family, reviewed EMR data (avail), discussed with nursing, discussed with case mgmt, reviewed images, amended to note Attending Assessment/Plan: 62 o/f with pmh of hypertension is admitted with acute onset of left lower extrmeity presentation weakness and MRI suggestive of PRES. Patient clinical condition is stable. Her BP is controlled. F/u neurology for further recs. frequent neruochecks. PT ongoing and recs dc to STR.
[2018-02-16 14:51] VITALS: BP 110/60
--- NOTE | 2018-02-16 21:38 | Discharge Summary ---
Visit Information Visit Dates Admission Date: 02/14/18 Discharge Date: 02/18/18 Hospital Course Course Attending Physician: Vince Coello MD Primary Care Physician: Sawyer Strauss MD Consulting Request: Consulting Specialty: Neurology Hospital Course: 62 years old female with PMH of bipolar disorder, depression, fibromyalgia, heart burn, silent heart attack twice (discorvered through EKG) as per the patient, admitted with the chief complain of worsening vision and weakness in left leg. Pateint was afebrile in ED and hemodynamically stable. Our intital examination on Telemtry revelaed, Pupils equal and reactive. Extraocular movements intact. No dysarthria, weakness of the proximal left lower extremity 4/5 and brisk reflexes. RLE 5/5, 5/5 b/l upper extremities, No sensory abnormalities noted, Plantar responses were flexor. CT scan of the brain showed, Confluent area of hypoattenuation in the white matter of the right paracentral lobule extending into the centrum semiovale. As per the radiologist, this finding was indeterminant and may represent age-indeterminate subcortical infarct however vasogenic edema related to an underlying lesion could have a similar appearance. Given the lack of clarity in CT scan, MRI w/o LYNSEY was ordered, that showed expansile T2 hyperintensity and associated restricted diffusion in the bilateral parietal and occipital lobes compatible with posterior reversible encephalopathy syndrome (PRES). No intracranial hemorrhage, large territory infarct, or mass was seen. Patient was admitted on telemetry floor for the management of following problems Reversible posterior leukoencephalopathy syndrome (RPLS) Initially when patient presented, she was treated for possible stroke. Her clinical exam and imaging were not consistent therefore it was decided to get an MRI which revealed expansile T2 hyperintensity and associated restricted diffusion in the bilateral parietal and occipital lobes compatible with posterior reversible encephalopathy syndrome (PRES). No intracranial hemorrhage, large territory infarct, or mass. Patient did have visual symptoms and possible ? Confusion. She was not experiencing any hypertensive crisis, or undergoing cytotoxic immunosuppressive therapy. Neurology was on board during the hospitalization who were still unsure about whether it was a stroke. She was, however, deemed stable from a neurologic perspective to discharge to rehabilitation, but would need an ophthalmology consultation, as well as outpatient neurology follow-up at which time a repeat brain MRI will be pursued. Left lower extremity weakness/ Ischemic Stroke Patient's proximal lower extremity weakness with brisk reflexes did not improve during the hospitalization. Patient was able to pass bedside swallow. Patient was also empirically started on aspirin and statin to treat this weakness as possible ischemic stroke. Will continue the same upon discahrge as Neuro is not entirely sure whetehr it was a stroke or not or just PRES. Patient was placed on fall precautions. Ultrasound carotid showed no evidence for hemodynamically significant stenosis in the external carotid arteries. PT/OT ordered. PT recommended D/C to STR. Patient advised to be cautious while ambulating to ensure she doesnt fall. Hypokalemia Patient admitted with very low levels of potassium. Mild improvement progressively with PO supplementation. Normal magnesium levels. We also discussed about the possibility of hypokalemic periodic paralysis but her wekaness in the left leg did not improve with normaliztion of potassium levels. Chronic medical conditions Patient has past medical history significant for bipolar disorder and and fibromyalgia. We continued her regular medications. Patient was DNR/DNI Patient was on heart healthy diet Patient was on SC heparin for DVT prophylaxis Allergies: Coded Allergies: NO KNOWN ALLERGIES (10/16/12) Significant Procedures: SERVICE DATE: 02/14/18- EXAM TYPE: US - [id number] DOPPLER FINDINGS: Right side: 1. No appreciable plaque is seen in the ECA/ICA region. 2. The common carotid artery velocity is 104 cm/s. 3. The internal carotid artery velocities are 53 cm/s systolic and 23 cm/s diastolic. 4. The external carotid artery velocity is 66 cm/s. Left side: 1. No appreciable plaque is seen in the ECA/ICA region. 2. The common carotid artery velocity is 82 cm/s. 3. The internal carotid artery velocities are 57 cm/s systolic and 20 cm/s diastolic. 4. The external carotid artery velocity is 87 cm/s. ADDITIONAL FINDINGS: 1. The vertebral arteries show antegrade flow. IMPRESSION: 1. RIGHT: No significant stenosis of the proximal right internal carotid artery by velocity criteria. 2. LEFT: No significant stenosis of the proximal left internal carotid artery by velocity criteria. SERVICE DATE: 02/14/18-1131 EXAM TYPE: RAD - XRY-PORTABLE CHEST XRAY FINDINGS: No dense consolidation in the chest. No edema, pleural effusion, or pneumothorax. Cardiomediastinal silhouette is normal. Mild atheromatous calcifications in the aorta. IMPRESSION: No dense consolidation in the chest. SERVICE DATE: 02/14/18-1131 EXAM TYPE: CAT - CT HEAD WO IV CONTRAST FINDINGS: There is confluent area of hypoattenuation within the white matter of the right paracentral lobule extending into the centrum semiovale (series 2 image 45/64). There is no evidence of large territory acute infarction, hemorrhage, or extra-axial collection. The basal cisterns are intact. There is no midline shift or mass effect. The ventricles are normal in size and configuration without evidence of hydrocephalus. The extracranial structures are within normal limits. IMPRESSION: 1. Confluent area of hypoattenuation in the white matter of the right paracentral lobule extending into the centrum semiovale. This finding is indeterminant and may represent age-indeterminate subcortical infarct however vasogenic edema related to an underlying lesion could have a similar appearance. In the absence of prior studies to evaluate for stability of this finding a brain MRI with contrast is recommended for dedicated evaluation. 2. No intracranial hemorrhage, extra-axial collection, or evidence of large territory infarction. RECOMMENDATION: Brain MRI with contrast as above. SERVICE DATE: 02/15/18- EXAM TYPE: MRI - MRI-HEAD W/O LYNSEY FINDINGS: There are patchy and confluent areas of expansile T2 hyperintensity and associated restricted diffusion involving the right superior parietal lobule, bilateral deep parietal white matter, and bilateral occipital lobes in a typical distribution of posterior reversible encephalopathy syndrome. There is no associated hemorrhage. There is no large territory infarction. There is no intracranial mass or extra-axial collection. There are mild scattered foci of T2 hyperintensity in the bilateral cerebral white matter which may reflect small vessel ischemic changes but is nonspecific. There is scattered mucosal thickening throughout the paranasal sinuses. There is a small amount of fluid in the mastoids. IMPRESSION: - Expansile T2 hyperintensity and associated restricted diffusion in the bilateral parietal and occipital lobes compatible with posterior reversible encephalopathy syndrome (PRES). - No intracranial hemorrhage, large territory infarct, or mass. Disposition Summary Disposition Principal Diagnosis: Reversible posterior leukoencephalopathy syndrome Left lower extremity weakness/ Ischemic Stroke Hypokalemia- resolved History of bipolar disorder Additional Diagnosis: H/o bipolar disorder, depression and fibromyalgia Discharge Disposition: SNF Discharge Instructions General Discharge Information Code Status: Do Not Resucitate/Intubat Patient's Diet: heart healthy diet Patient's Activity: As tolerated Fall Precautions Follow-Up Instructions/Appts: Follow up with Neurologist after discharge. You will need outpatient neurology follow-up at which time a repeat brain MRI. Follow up with PCP after discharge. Follow up with your quality tester within one week of discharge. Medications at Discharge Discharge Medications: Stop taking the following medications: Sulindac (Sulindac) 150 MG TABLET ORAL TWICE DAILY Qty = 60 Continue taking these medications: Lamotrigine (Lamotrigine) 100 MG TABLET 1 Tablet ORAL TWICE DAILY Qty = 60 Comments: Last Taken: 02/18/18 Time: 10:00 AM Quetiapine Fumarate (Quetiapine Fumarate) 200 MG TABLET 1 Tablet ORAL TWICE DAILY Qty = 60 Comments: Last Taken: 02/18/18 Time: 10:00 AM Omeprazole (Omeprazole) 40 MG CAPSULE.DR 1 Capsule ORAL DAILY Qty = 30 Comments: Last Taken: 02/18/18 Time: 5:30 AM Trazodone HCl (Trazodone HCl) 100 MG TABLET 2 Tablet ORAL Every night Qty = 60 Comments: Last Taken: 02/17/18 Time: 10:00 PM Alprazolam (Alprazolam) 1 MG TABLET 1 Tablet ORAL THREE TIMES A DAY NEEDED Qty = 90 Comments: Last Taken: 02/17/18 Time: 3:30 PM Butalb/Acetaminophen/Caffeine (Tyoubj-Evbbdkvs-Jsfc 50-325-40) 50 MG-325 MG-40 MG TABLET 2 Tablet ORAL EVERY SIX HOURS as needed for headache Qty = 40 Comments: Last Taken: 02/18/18 Time: 4:00 AM Dextroamphetamine/Amphetamine (Dextroamp-Amphetamin 20 MG Tab) 20 MG TABLET 1 Tablet ORAL THREE TIMES DAILY Qty = 60 Comments: NOT GIVEN IN HOSPITAL Levocetirizine Dihydrochloride (Levocetirizine Dihydrochloride) 5 MG TABLET 1 Tablet ORAL DAILY Comments: NOT GIVEN IN HOSPITAL Diphenoxylate HCl/Atropine (Lomotil 2.5-0.025 MG Tablet) 2.5 MG-0.025 MG TABLET 1 Tablet ORAL 4 TIMES A DAY as needed for abdomen Comments: NOT GIVEN IN HOSPITAL Ondansetron (Ondansetron Odt) 8 MG TAB.RAPDIS 1 Tablet ORAL THREE TIMES DAILY as needed for NAUSEA Comments: NOT GIVEN IN HOSPITAL Start taking the following new medications: Atorvastatin Calcium (Atorvastatin Calcium) 80 MG TABLET 80 Milligram ORAL 5 PM Qty = 90 No Refills Comments: Last Taken: 02/17/18 Time: 7:00 PM Aspirin (Aspirin*) 81 MG TAB.CHEW 81 Milligram ORAL DAILY Qty = 60 No Refills Comments: Last Taken: 02/18/18 Time: 10:00 AM Copies To: Niranjan REYNOLDS,Fahad Guadalupe; Sawyer Strauss MD; Rehan REYNOLDS,M[facility] Gifford Attending MD Review Statement Documenting Attending: Oumou REYNOLDS,Vince Other Findings: Patient clinically stable and can be discharge to rehab facility with follow up PCP, referral to ophthalmology and neurology for repeat MRI brain in few weeks. Patient resumed home medications at discharge.
[2018-02-16] MEDS ORDERED: ASPIRIN81 M4 PO (22:05)
[2018-02-16] MEDS ORDERED: ATORVASTATIN CA80 M1 PO (22:05)
[2018-02-16] MEDS ORDERED: OMEPRAZOLE40 M1 PO (22:06)
[2018-02-16] MEDS ORDERED: QUETIAPINE FUM200 M1 PO (22:06)
[2018-02-16] MEDS ORDERED: LAMOTRIGINE100 M2 PO (22:06)
[2018-02-16] MEDS ORDERED: TRAZODONE HCL100 M1 PO (22:07)
[2018-02-16] MEDS ORDERED: ALPRAZOLAM1 M2 PO (22:07)
[2018-02-16] MEDS ORDERED: SULINDAC150 M1 PO (22:08)
[2018-02-16] MEDS ORDERED: BUTALB-ACETAMI1 EACH PO (22:08)
[2018-02-16] MEDS ORDERED: DEXTROAMP-AMPHE20 MG PO (22:10)
[2018-02-16 22:44] VITALS: BP 108/66
--- NOTE | 2018-02-17 07:23 | PN- Housestaff ---
Azra Soliman 02/17/18 0722: Subjective Follow-up For: Reversible posterior leukoencephalopathy syndrome (RPLS) Left lower extremity weakness/ Ischemic Stroke Hypokalemia- resolved History of bipolar disorder Tele-Events Since Last Visit: SR: 66-84; No overnight events. Subjective: Patient seen and exmained bedside. She c/o headache, and that she is not getting her pain medications. Endorses continued viusual changes. Of noet she worked with PT and has been out of bed and ambulating to the bathroom. Review of Systems Constitutional: Denies: chills, fever. Cardiovascular: Denies: chest pain, orthopena, palpitations. Respiratory: Denies: cough, orthopnea, short of breath, wheezing. Gastrointestinal: Denies: abdominal pain, nausea, vomiting. Genitourinary: Reports: no symptoms. Neurological/Psychological: Reports: headache, weakness. Denies: numbness, tingling, tremors. Objective Last 24 Hrs of Vital Signs/I&O Vital Signs Date Time Temp Pulse Resp B/P B/P Pulse O2 O2 Flow FiO2 Mean Ox Delivery Rate 02/16 2244 97.7 86 18 108/66 96 Room Air 02/16 1451 97.8 87 20 110/60 95 Room Air 02/16 1400 Room Air Room Air 02/16 0800 Room Air Intake & Output 02/17 0800 02/17 0000 02/16 1600 Intake Total 300 422 898 Output Total 250 400 Balance 50 422 498 Intake, IV 10 Intake, Oral 300 422 888 Output, Urine 250 400 Patient 170 lb Weight Weight Bed scale Measurement Method Physical Exam General Appearance: Alert, Oriented X3, Cooperative, No Acute Distress Skin Temp/Moisture Exam: Warm/Dry HEENT: Atraumatic, PERRLA, EOMI, Mucous Membr. moist/pink Neck: Supple, No JVD, No LAD Cardiovascular: Regular Rate, Normal S1, Normal S2, No Murmurs Lungs: Clear to Auscultation, Normal Air Movement Abdomen: Normal Bowel Sounds, Soft, No Tenderness Neurological: Normal Speech, Normal Tone, strength 5/5 in b/l ue, 4/5 in LLE, 5/ 5 in RLE. Extremities: No Edema, Normal Pulses Current Medications: Current Medications Sig/Juana Start time Last Medication Dose Route Stop Time Status Admin Acetaminophen 650 MG Q8P PRN 02/14 1800 AC PO Albuterol Sulfate 2 PUF Q4 02/14 2200 AC 02/17 INH 0618 Aspirin 81 MG DAILY 02/15 1000 AC 02/16 PO 0933 Atorvastatin Calcium 80 MG 1700 02/14 1700 AC 02/16 PO 1713 Heparin Sodium 5,000 UNIT Q8 02/15 2200 AC 02/17 (Porcine) SC 0616 Hydrocodone Bitart/ 1 TAB Q6P PRN 02/14 2245 AC 02/17 Acetaminophen PO 0414 Lamotrigine 100 MG DAILY 02/15 1000 AC 02/16 PO 0933 Nicotine 14 MG DAILY 02/14 1842 AC 02/16 TOP 0933 Omeprazole 40 MG DAILY AC 02/14 1845 AC 02/17 PO 0616 Patient Medication 1 ED ONE ONE 02/16 0830 RI Teaching ED 02/16 0831 Polyethylene Glycol 17 GM DAILY 02/16 1135 AC 02/16 PO 1156 Potassium Chloride 40 MEQ DAILY 02/17 1000 AC PO 02/19 1001 Quetiapine Fumarate 200 MG DAILY 02/15 1000 AC 02/16 PO 0933 Senna/Docusate Sodium 1 TAB BID 02/16 1135 AC 02/16 PO 2125 Trazodone HCl 100 MG AT BEDTIME 02/14 2200 AC 02/16 PO 2125 Last 24 Hrs of Lab/Rashawn Results Last 24 Hrs of Labs/Mics: Laboratory Tests 02/17/18 0645: Sodium Pending, Potassium Pending, Chloride Pending, Carbon Dioxide Pending, Anion Gap Pending, BUN Pending, Creatinine Pending, BUN/Creatinine Ratio Pending , CBC w Diff Pending, WBC Pending, RBC Pending, Hgb Pending, Hct Pending, MCV Pending, MCH Pending, MCHC Pending, RDW Pending, Plt Count Pending, MPV Pending Assessment/Plan Assessment: 62 years old female with PMH of bipolar disorder, depression, fibromyalgia, heart burn, silent heart attack twice (discorvered through EKG) as per the patient, came with chief complain of worsening vision and weakness in left leg. CT scan of the brain showed, Confluent area of hypoattenuation in the white matter of the right paracentral lobule extending into the centrum semiovale. This finding is indeterminant and may represent age-indeterminate subcortical infarct however vasogenic edema related to an underlying lesion could have a similar appearance. Brain MRI was ordered that showed, Expansile T2 hyperintensity and associated restricted diffusion in the bilateral parietal and occipital lobes compatible with posterior reversible encephalopathy syndrome (PRES). No intracranial hemorrhage, large territory infarct, or mass. Patient was admitted on telemetry floor for the management of following problems Reversible posterior leukoencephalopathy syndrome (RPLS) Initially when patient presented, she was treated for possible stroke. Her clinical exam and imaging were not consistent therefore it was decided to get an MRI. Patient does have visual symptoms and ? Confusion. She is not experiencing any hypertensive crisis, or undergoing cytotoxic immunosuppressive therapy. Neurology on board and informed about this finding. Okay from a neurologic perspective to discharge to rehabilitation, but will need an ophthalmology consultation. She will also need outpatient neurology follow-up at which time a repeat brain MRI can be arranged. Left lower extremity weakness/ Ischemic Stroke Patient's proximal lower extremity weakness with brisk reflexes did not improve during the hospitalization. Patient was able to pass bedside swallow. Patient was also empirically started on aspirin and statin to treat this weakness as possible ischemic stroke. Maintain on fall precautions. Ultrasound carotid showed, No evidence for hemodynamically significant stenosis in the external carotid arteries. PT/OT ordered. PT recommends STR. Hypokalemia Resolved. We also discussed about the possibility of hypokalemic periodic paralysis but her wekaness in the left leg did not improve with normaliztion of potassium levels. Avoid QTC prolonging medications. Chronic medical conditions Patient has past medical history significant for bipolar disorder and and fibromyalgia. We'll continue regular medications. Patient is DNR/DNI Patient is on heart healthy diet Patient is on heparin for DVT prophylaxis Problem List: 1. PRES (posterior reversible encephalopathy syndrome) Pain Ratin Pain Location: headache Pain Goal: Remain pain free Pain Plan: fioricet Tomorrow's Labs & Rationales: N/A Consulting Request: Consulting Specialty: Neurology OumouVince bernardo 02/17/18 1332: Attending MD Review Statement Attending Statement Attending MD Statement: examined this patient, discuss w/resident/PA/BEEF LUGGER, agreed w/resident/PA/BEEF LUGGER, discussed with family, reviewed EMR data (avail), discussed with nursing, discussed with case mgmt, reviewed images, amended to note Attending Assessment/Plan: 62 o/f with pmh of hypertension is admitted with acute onset of left lower extrmeity presentation weakness, blurred vision and MRI suggestive of PRES. Patient clinical condition is stable. Her BP is controlled. F/u neurology for further recs. Fioricet prn for headache. frequent neruochecks. PT ongoing and recs dc to STR once bed available.
[2018-02-17 07:28] VITALS: BP 106/60
[2018-02-17 08:29] LABS: ABSOLUTE BASOPHIL COUNT 0 /CUMM (0.0-0.2); ABSOLUTE EOSINOPHIL COUNT 0 /CUMM (0.0-0.7); ABSOLUTE GRANULOCYTE CT 2.8 /CUMM (1.4-6.5); ABSOLUTE LYMPH COUNT 2.1 /CUMM (1.2-3.4); ABSOLUTE MONOCYTE COUNT 0.4 /CUMM (0.10-0.60); BASOPHIL % 0.3 % (0.0-2.0); EOSINOPHIL % 0.4 % (0-5); GRANULOCYTE % 52.6 % (42.2-75.2); HEMATOCRIT 35.2 % (37-47); MEAN CORPUSCULAR HGB 33.3 PG (27.0-31.0); MEAN CORPUSCULAR VOLUME 97.9 FL (81.0-99.0); MEAN PLATELET VOLUME 9.1 FL (7.4-10.4); PLATELET COUNT 152 /CUMM (130-400); RBC DISTRIBUTION WIDTH 14.4 % (11.5-14.5); RED BLOOD CELL CT 3.59 /CUMM (4.20-5.40); WHITE BLOOD CELL COUNT 5.3 /CUMM (4.8-10.8)
[2018-02-17] MEDS ORDERED: LOMOTIL 2.5-0.1 EACH PO (11:52)
[2018-02-17] MEDS ORDERED: LEVOCETIRIZINE D5 M1 PO (11:52)
[2018-02-17] MEDS ORDERED: ONDANSETRON ODT8 M1 PO (11:53)
--- NOTE | 2018-02-17 12:37 | PN- Neurology ---
Subjective Subjective: Reports occasional headaches relieved with prn Fioricet as prescribed by her primary care physician Reports a feeling of numbness in her left foot. Reports low vision in her right eye but does not know the etiology. Objective Vital Signs and I&Os Vital Signs Date Time Temp Pulse Resp B/P B/P Pulse O2 O2 Flow FiO2 Mean Ox Delivery Rate 02/17 0728 97.8 76 18 106/60 97 Room Air 02/16 2244 97.7 86 18 108/66 96 Room Air 02/16 1451 97.8 87 20 110/60 95 Room Air 02/16 1400 Room Air Room Air Intake & Output 02/17 1600 02/17 0802/17 0000 02/16 1600 02/16 0800 02/16 0000 Intake Total 300 422 898 175 200 Output Total 250 400 200 Balance 50 422 498 -25 200 Intake, IV 10 Intake, Oral 300 422 888 175 200 Output, Urine 250 400 200 Patient 170 lb 167 lb Weight Weight Bed scale Measurement Method Physical Exam: Awake alert pleasant and cooperative in no apparent distress Head normocephalic atraumatic Neck supple Extremities without clubbing cyanosis or edema. Neurologic exam: She was awake alert and oriented to person and place, thought the year was 2007 Speech fluent Cranial nerves: Unable to count fingers or detect hand motions with the right hand. Does have some light perception Left eye visual murcia likely full to confrontation, although she often gave an answer of 3 when 2 fingers were held up Pupils equal round and reactive to light Symmetric facial movements Symmetric elevation of the uvula and palate Symmetric shoulder shrug Tongue protruded to midline Hearing grossly intact Motor: Normal muscle bulk and tone with no abnormal involuntary movements Upper extremity strength normal Relative left lower extremity weakness compared to the right with variable effort Tendon reflexes symmetrically trace to 1+ Plantar responses flexor Light touch sensation intact Gait not tested Current Medications: Current Medications Sig/Juana Start time Last Medication Dose Route Stop Time Status Admin Acetaminophen 650 MG Q8P PRN 02/14 1800 AC PO Albuterol Sulfate 2 PUF Q4 02/14 2200 AC 02/17 INH 0618 Aspirin 81 MG DAILY 02/15 1000 AC 02/17 PO 1049 Atorvastatin Calcium 80 MG 1700 02/14 1700 AC 02/16 PO 1713 Heparin Sodium 5,000 UNIT Q8 02/15 2200 AC 02/17 (Porcine) SC 0616 Hydrocodone Bitart/ 1 TAB Q6P PRN 02/14 2245 AC 02/17 Acetaminophen PO 0925 Lamotrigine 100 MG DAILY 02/15 1000 AC 02/17 PO 1049 Nicotine 14 MG DAILY 02/14 1842 AC 02/17 TOP 1049 Omeprazole 40 MG DAILY AC 02/14 1845 AC 02/17 PO 0616 Polyethylene Glycol 17 GM DAILY 02/16 1135 AC 02/17 PO 1050 Potassium Chloride 40 MEQ DAILY 02/17 1000 AC 02/17 PO 02/19 1001 1050 Quetiapine Fumarate 200 MG DAILY 02/15 1000 AC 02/17 PO 1048 Senna/Docusate Sodium 1 TAB BID 02/16 1135 AC 02/17 PO 1049 Trazodone HCl 100 MG AT BEDTIME 02/14 2200 AC 02/16 PO 2125 Results Last 24 Hours of Lab Results: ESR 13 Laboratory Tests 02/17 0645 Chemistry Sodium (137 - 145 mmol/L) 138 Potassium (3.5 - 5.1 mmol/L) 3.6 Chloride (98 - 107 mmol/L) 96 L Carbon Dioxide (22 - 30 mmol/L) 32 H Anion Gap (5 - 16) 10 BUN (7 - 17 mg/dL) 11 Creatinine (0.5 - 1.0 mg/dL) 0.7 Estimated GFR (>60 ml/min) > 60 BUN/Creatinine Ratio (7 - 25 %) 15.7 Hematology CBC w Diff NO MAN DIFF REQ WBC (4.8 - 10.8 /CUMM) 5.3 RBC (4.20 - 5.40 /CUMM) 3.59 L Hgb (12.0 - 16.0 G/DL) 11.9 L Hct (37 - 47 %) 35.2 L MCV (81.0 - 99.0 FL) 97.9 MCH (27.0 - 31.0 PG) 33.3 H MCHC (33.0 - 37.0 G/DL) 34.0 RDW (11.5 - 14.5 %) 14.4 Plt Count (130 - 400 /CUMM) 152 MPV (7.4 - 10.4 FL) 9.1 Gran % (42.2 - 75.2 %) 52.6 Lymphocytes % (20.5 - 51.1 %) 38.8 Monocytes % (1.7 - 9.3 %) 7.9 Eosinophils % (0 - 5 %) 0.4 Basophils % (0.0 - 2.0 %) 0.3 Absolute Granulocytes (1.4 - 6.5 /CUMM) 2.8 Absolute Lymphocytes (1.2 - 3.4 /CUMM) 2.1 Absolute Monocytes (0.10 - 0.60 /CUMM) 0.4 Absolute Eosinophils (0.0 - 0.7 /CUMM) 0 Absolute Basophils (0.0 - 0.2 /CUMM) 0 Recent Imaging Studies: PATIENT: ALLEGRA CAVANAUGH PRESENT AGE: 62 PATIENT ACCOUNT NO: [id number] : 57 LOCATION: 1NO ORDERING PHYSICIAN: Keyonna Burger MD SERVICE DATE: 02/15/18- EXAM TYPE: MRI - MRI-HEAD W/O LYNSEY EXAMINATION: MR BRAIN WITHOUT CONTRAST CLINICAL INFORMATION: Evaluate for stroke/vasogenic edema. COMPARISON: Head CT 02/14/2018. TECHNIQUE: MRI of the brain without contrast was obtained using routine sequences. The study is moderately motion degraded. The study was prematurely terminated at the patient's request. FINDINGS: There are patchy and confluent areas of expansile T2 hyperintensity and associated restricted diffusion involving the right superior parietal lobule, bilateral deep parietal white matter, and bilateral occipital lobes in a typical distribution of posterior reversible encephalopathy syndrome. There is no associated hemorrhage. There is no large territory infarction. There is no intracranial mass or extra-axial collection. There are mild scattered foci of T2 hyperintensity in the bilateral cerebral white matter which may reflect small vessel ischemic changes but is nonspecific. There is scattered mucosal thickening throughout the paranasal sinuses. There is a small amount of fluid in the mastoids. IMPRESSION: - Expansile T2 hyperintensity and associated restricted diffusion in the bilateral parietal and occipital lobes compatible with posterior reversible encephalopathy syndrome (PRES). - No intracranial hemorrhage, large territory infarct, or mass. DICTATED BY: Aranza Busby MD DATE/TIME DICTATED:02/15/181243 NEEDLE SETTER:JAIDEN DATE/TIME TRANSCRIBED:02/15/181243 CONFIDENTIAL, DO NOT COPY WITHOUT APPROPRIATE AUTHORIZATION. <Electronically signed in Other Vendor System> SIGNED BY: Aranza Busby MD 02/15/18 1257 Carotid ultrasound: ADDITIONAL FINDINGS: 1. The vertebral arteries show antegrade flow. IMPRESSION: 1. RIGHT: No significant stenosis of the proximal right internal carotid artery by velocity criteria. 2. LEFT: No significant stenosis of the proximal left internal carotid artery by velocity criteria. 3. No evidence for hemodynamically significant stenosis in the external carotid arteries. DICTATED BY: Gilberto Adam MD DATE/TIME DICTATED:02/14/181628 Assessment/Plan Assessment: MRI suggestive of posterior leukoencephalopathy syndrome(pathophysiology unclear , thought to be related to disordered cerebral autoregulation and endothelial dysfunction), and lesions seen likely correlate with her visual symptoms and left leg weakness. Question of profound acuity impairment of the right eye, old versus new, she is a limited historian in this regard. Although she has a history of hypertension, her blood pressure appears to have been well controlled throughout the admission, so the etiology remains unclear. Other potential triggers such as uremia sepsis or other metabolic disturbances have not been uncovered. Further, she is not on cytotoxic immunosuppressive therapy. This is generally a condition with a favorable prognosis, with most patients recovering within 2 weeks, and a small number having residual neurologic deficits. Plan: Okay from a neurologic perspective to discharge to rehabilitation, but would arrange for an ophthalmology consultation She will need outpatient neurology follow-up at which time a repeat brain MRI can be arranged. Okay to use when necessary Fioricet for headache
[2018-02-17 14:42] VITALS: BP 108/78
[2018-02-17 21:54] VITALS: BP 104/60
[2018-02-18 06:59] VITALS: BP 112/56
--- NOTE | 2018-02-18 07:20 | PN- Housestaff ---
Azra Soliman 02/18/18 0719: Subjective Follow-up For: Reversible posterior leukoencephalopathy syndrome (RPLS) Left lower extremity weakness/ Ischemic Stroke Hypokalemia- resolved History of bipolar disorder Complaints: no complaints Tele-Events Since Last Visit: Normal sinus rhythm heart rate 66-74 Subjective: Patient seen and examined at bedside. She offers no complaints. Vitals stable per Review of Systems Constitutional: Denies: chills, fever. EENTM: Reports: visual changes. Cardiovascular: Denies: chest pain, orthopena, palpitations, peripheral edema. Respiratory: Denies: cough, hemoptysis, orthopnea, short of breath. Gastrointestinal: Denies: abdominal pain, constipation, diarrhea, nausea, vomiting. Neurological/Psychological: Reports: numbness. Denies: headache, tingling, tremors. Objective Last 24 Hrs of Vital Signs/I&O Vital Signs Date Time Temp Pulse Resp B/P B/P Pulse O2 O2 Flow FiO2 Mean Ox Delivery Rate 02/18 0659 97.8 70 20 112/56 97 Room Air 02/17 2154 98.7 73 18 104/60 94 02/17 1442 98.0 74 18 108/78 97 Room Air 02/17 0728 97.8 76 18 106/60 97 Room Air Intake & Output 02/18 0800 02/18 0000 02/17 1600 Intake Total 200 250 480 Output Total 600 Balance 200 250 -120 Intake, Oral 200 250 480 Number 1 Bowel Movements Output, Urine 600 Patient 170 lb Weight Physical Exam General Appearance: Alert, Oriented X3, Cooperative, No Acute Distress HEENT: Atraumatic, PERRLA, EOMI, Mucous Membr. moist/pink Neck: Supple, No JVD, No LAD Cardiovascular: Regular Rate, Normal S1, Normal S2, No Murmurs Lungs: Clear to Auscultation, Normal Air Movement Abdomen: Normal Bowel Sounds, Soft, No Tenderness Neurological: Normal Speech, strength 5/5 in RUE; RLE; 5/5 LUE; 4/5 in LLE Extremities: No Edema Current Medications: Current Medications Sig/Juana Start time Last Medication Dose Route Stop Time Status Admin Acetaminophen 650 MG Q8P PRN 02/14 1800 AC PO Acetaminophen/ 1 TAB Q6P PRN 02/17 1400 AC 02/18 Butalbital/Caffeine PO 0404 Albuterol Sulfate 2 PUF Q4 02/14 2200 AC 02/18 INH 0530 Alprazolam 1 MG TID PRN 02/17 1500 AC 02/17 PO 02/24 1459 1540 Aspirin 81 MG DAILY 02/15 1000 AC 02/17 PO 1049 Atorvastatin Calcium 80 MG 1700 02/14 1700 AC 02/17 PO 1903 Heparin Sodium 5,000 UNIT Q8 02/15 2200 AC 02/18 (Porcine) SC 0529 Hydrocodone Bitart/ 1 TAB Q6P PRN 02/14 2245 AC 02/18 Acetaminophen PO 0529 Lamotrigine 100 MG DAILY 02/15 1000 AC 02/17 PO 1049 Nicotine 14 MG DAILY 02/14 1842 AC 02/17 TOP 1049 Omeprazole 40 MG DAILY AC 02/14 1845 AC 02/18 PO 0528 Polyethylene Glycol 17 GM DAILY 02/16 1135 AC 02/17 PO 1050 Potassium Chloride 40 MEQ DAILY 02/17 1000 AC 02/17 PO 02/19 1001 1050 Quetiapine Fumarate 200 MG DAILY 02/15 1000 AC 02/17 PO 1048 Senna/Docusate Sodium 1 TAB BID 02/16 1135 AC 02/17 PO 2129 Trazodone HCl 100 MG AT BEDTIME 02/14 2200 AC 02/17 PO 2129 Assessment/Plan Assessment: 62 years old female with PMH of bipolar disorder, depression, fibromyalgia, heart burn, silent heart attack twice (discorvered through EKG) as per the patient, came with chief complain of worsening vision and weakness in left leg. CT scan of the brain showed, Confluent area of hypoattenuation in the white matter of the right paracentral lobule extending into the centrum semiovale. This finding is indeterminant and may represent age-indeterminate subcortical infarct however vasogenic edema related to an underlying lesion could have a similar appearance. Brain MRI was ordered that showed, Expansile T2 hyperintensity and associated restricted diffusion in the bilateral parietal and occipital lobes compatible with posterior reversible encephalopathy syndrome (PRES). No intracranial hemorrhage, large territory infarct, or mass. Patient was admitted on telemetry floor for the management of following problems Reversible posterior leukoencephalopathy syndrome (RPLS) Initially when patient presented, she was treated for possible stroke. Her clinical exam and imaging were not consistent therefore it was decided to get an MRI. Patient does have visual symptoms and ? confusion. She is not experiencing any hypertensive crisis, or undergoing cytotoxic immunosuppressive therapy. Neurology on board and saw the patient yesterday. Okay from a neurologic perspective to discharge to rehabilitation, but will need an ophthalmology consultation as an outpatient. She will also need outpatient neurology follow-up at which time a repeat brain MRI can be arranged. Spoke with neurology regarding continuing her on aspirin and statin. They will follow-up with her in 2 weeks. At this time they are uncertain whether it was a stroke. Will continue her on ASA, and statin Left lower extremity weakness/ Ischemic Stroke Patient's proximal lower extremity weakness with brisk reflexes did not improve during the hospitalization. Patient was able to pass bedside swallow. Patient was also empirically started on aspirin and statin to treat this weakness as possible ischemic stroke. Maintain on fall precautions. Ultrasound carotid showed, No evidence for hemodynamically significant stenosis in the external carotid arteries. PT/OT ordered. PT recommends STR. She will be discharged to short-term rehab later today Hypokalemia Resolved. We also discussed about the possibility of hypokalemic periodic paralysis but her wekaness in the left leg did not improve with normaliztion of potassium levels. Chronic medical conditions Patient has past medical history significant for bipolar disorder and and fibromyalgia. We'll continue regular medications. Patient is DNR/DNI Patient is on heart healthy diet Patient is on heparin for DVT prophylaxis Problem List: 1. PRES (posterior reversible encephalopathy syndrome) 2. Encephalopathy 3. CVA (cerebral vascular accident) Pain Ratin Pain Location: headche Pain Goal: Remain pain free Pain Plan: fiorecet Tomorrow's Labs & Rationales: n/a Consulting Request: Consulting Specialty: Neurology Discharge Plan Discharge Disposition: STR/NH Stable for Discharge? Yes Anticipated Discharge (Day): today If Discharged Today/In 24 Hrs: W-10/discharge paper done, DC summary done, CMR done Vince Coello 02/18/18 1200: Attending MD Review Statement Attending Statement Attending MD Statement: examined this patient, discuss w/resident/PA/EMERGENCY DEPARTMENT MANAGER, agreed w/resident/PA/EMERGENCY DEPARTMENT MANAGER, discussed with family, reviewed EMR data (avail), discussed with nursing, discussed with case mgmt, reviewed images, amended to note Attending Assessment/Plan: Patient clinically stable and can be discharge to rehab facility with follow up PCP, referral to ophthalmology and neurology for repeat MRI brain in few weeks. Patient resumed home medications at discharge.
--- NOTE | 2018-02-18 07:49 | Patient Discharge Instructions ---
Discharge Instructions General Discharge Information You were seen/treated for: - Posterior reversible leukoencephalopathy syndrome Special Instructions: Follow up with Neurologist after discharge. You will need outpatient neurology follow-up at which time a repeat brain MRI. Follow up with PCP after discharge. Follow up with your mechanism assembler within one week of discharge. Diet Recommended Diet: Heart Healthy Activity Activity Self Limited: Yes Acute Coronary Syndrome Inclusion Criteria At DC or during hospital stay patient has or had the following: ACS DIAGNOSIS No Discharge Core Measures Meds if any: Prescribed or Continued at Discharge Meds if any: NOT Prescribed or Continued at Discharge Congestive Heart Failure Inclusion Criteria At DC or during hospital stay patient has or had the following: CHF DIAGNOSIS No Discharge Core Measures Meds if any: Prescribed or Continued at Discharge Meds if any: NOT Prescribed or Continued at Discharge Cerebrovascular accident Inclusion Criteria At DC or during hospital stay patient has or had the following: CVA/TIA Diagnosis No Discharge Core Measures Meds if any: Prescribed or Continued at Discharge Antithrombotic No Statin (required if LDL =>70) No Meds if any: NOT Prescribed or Continued at Discharge Venous thromboembolism Inclusion Criteria VTE Diagnosis No VTE Type NONE VTE Confirmed by (Test) NONE Discharge Core Measures - Per Current guidelines, there needs to be overlap - treatment for the first 5 days of Warfarin therapy. - If discharged on Warfarin prior to 5 days of - overlap therapy, the patient will need to be - assessed for post discharge needs including - *Post discharge parental anticoagulation - *Warfarin and/or parental anticoagulation education - *Follow up date to check INR post discharge At least 5 days overlap therapy as Inpatient No Meds if any: Prescribed or Continued at Discharge Note: Overlap Therapy is Warfarin and Anticoagulant Meds if any: NOT Prescribed or Continued at Discharge
[2018-02-18 12:41] VITALS: BP 112/56
[2018-02-18 14:12] VITALS: BP 118/50
== END 2018-02-18 17:00 | DRG 81 ==
LOC: ERH 10:51 → 1NO 13:03 → ERHI 13:03 → ENRESERV 13:36 → ENTRNSPT 14:55 → EDTRNSPT 15:02 → EDTRNSPTSTS 15:02 → 1NO 15:10 → CMPTRNSPT 15:20 → 1NO 02-15 08:17 → ENPENDDIS 02-18 10:50 → 1NO 02-18 17:00
PROVIDERS: Emergency Medicine; Internal Medicine; Student in an Organized Health Care Education/Training Program
DX: G93.6 Cerebral edema (principal); E87.6 Hypokalemia; F31.9 Bipolar disorder, unspecified; M79.7 Fibromyalgia; K21.9 Gastro-esophageal reflux disease without esophagitis; I25.2 Old myocardial infarction; G83.14 Monoplegia of lower limb affecting left nondominant side; I25.10 Atherosclerotic heart disease of native coronary artery without angina pectoris; I49.3 Ventricular premature depolarization; Z66 Do not resuscitate
CPT/HCPCS: 1NSP; 70551; 36415; 36592; 71045; 81001; 82436; 93005; 93010; 97110-GO; 97116-GO; 97161-GP; 97166-GO; 97530-GO; J1644; J3490